=== PATIENT | female | born 1995 ===

== ENCOUNTER 2025-01-05 16:49 | Emergency (ER) | payer SELFPAY ==
[2025-01-05 17:08] VITALS: BP 135/93; PULSE 110; RESP 16; TEMP 36.8; O2SAT 100
--- NOTE | 2025-01-05 17:20 | ED_ITS ---
HPI - Psych General Chief Complaint: Psychiatric Symptoms Stated Complaint: anxious, paranoid Time Seen by Provider: 01/05/25 17:05 History of Present Illness HPI Narrative: 29 y/o F with a reported hx of schizophrenia, schizoaffective disorder, bipolar disorder, complex trauma presents to the ED for thoughts of not wanting to be in this world anymore. When asked if the patient is suicidal, she states I do not want to hurt myself. She denies HI. She is not forthcoming with information and states she does not want to speak with me about why she is hear, but rather the mental health workers. She denies hallucinations, drug use, ETOH abuse. She notes she was hospitalized at [facility] last week but does not elaborate as to why. She states she does not want to go back to [facility]. She is requesting a nicotine patch. Related Data Allergies Allergy/AdvReac Type Severity Reaction Status Date / Time Benzodiazepines AdvReac recovering Verified 01/05/25 17:12 addict lithium AdvReac hormone Verified 01/05/25 17:12 imbalance Review of Systems 2 Review of Systems: All systems reviewed & are unremarkable except as noted in HPI and below PMFSH Social History Social History Substance use type: former substance user Exam 2 Narrative: GENERAL: Well-appearing, well-nourished, and in no acute distress. HEAD: Normocephalic, atraumatic. EYES: EOMI. ENT: Nares clear, no rhinorrhea or epistaxis. Mucous membranes moist. NECK: Supple. CHEST: Clear to auscultation. No respiratory distress. HEART: Regular rate and rhythm. No murmur heard. Normal peripheral pulses. EXTREMITIES: Normal range of motion. No edema. SKIN: Warm, dry, no rash. NEURO: No focal deficits. Alert and oriented x3 PSYCH: Flat affect, anxious appearing, reserved. States ?I did not want to be in this world anymore?. But denies SI or HI when asked. Not responding to internal stimuli. Course Vital Signs Vital signs: Vital Signs Temperature 98.2 F 01/05/25 17:08 Pulse Rate 110 H 01/05/25 17:08 Respiratory Rate 16 01/05/25 17:08 Blood Pressure 135/93 H 01/05/25 17:08 Pulse Oximetry 100 01/05/25 17:08 Oxygen Delivery Room Air 01/05/25 17:08 Temperature 98.2 F 01/05/25 17:08 Pulse Rate 110 H 01/05/25 17:08 Respiratory Rate 16 01/05/25 17:08 Blood Pressure 135/93 H 01/05/25 17:08 Pulse Oximetry 100 01/05/25 17:08 Oxygen Delivery Room Air 01/05/25 17:08 MDM - Psych MDM Narrative Medical decision making narrative: 29-year-old female with a reported history of schizophrenia, schizoaffective disorder, bipolar disorder, complex trauma presents to the emergency department reporting ?I do not want to be in this world anymore?. When asked if she is suicidal, she states I do not want to hurt myself. Denies HI.Vitals with tachycardia 110. Patient is anxious appearing. Exam is notable for the above. Will obtain lab work and plan to consult [facility]. Pending remainder of workup when patient eloped out of the department. Pt denied SI and HI during my evaluation. Lab Data 01/05/25 17:13 01/05/25 17:13 Labs: Lab Results 01/05/25 Range/Units 17:13 WBC 4.3 L (4.5-10.0) K/mm3 RBC 4.09 L (4.2-5.4) M/mm3 Hgb 13.1 (12.0-15.0) g/dL Hct 38.6 (37.0-47.0) % MCV 94.4 (80-100) fl MCH 32.0 (26-34) pg MCHC 33.9 (32-36) g/dl RDW 12.9 (11.5-14.5) % Plt Count 274 (150-375) k/mm3 MPV 8.8 (7.4-10.4) fl Immature Gran % (Auto) 0.5 (0-0.5) % Neut % (Auto) 47.2 (45.5-73.1) % Lymph % (Auto) 35.7 (18.3-44.2) % Imperial % (Auto) 13.8 H (2.6-8.5) % Eos % (Auto) 2.1 (0-4.4) % Baso % (Auto) 0.7 (0.2-1.2) % Lymph # (Auto) 1.53 (0.9-3.2) K/mm3 Imperial # (Auto) 0.6 (0.1-0.6) K/mm3 Eos # (Auto) 0.1 (0-0.3) K/mm3 Baso # (Auto) 0.0 (0.0-0.1) K/mm3 Abs Immat Gran (auto) 0.02 (0.00-0.031) K/mm3 Absolute Neuts (auto) 2.0 (1.3-6.7) K/mm3 Absolute Nucleated RBC 0.000 (0.0-0.012) K/mm3 Nucleated RBC % 0.0 (0.0-0.2) % Sodium 137 (137-145) mmol/L Potassium 3.8 (3.4-5.0) mmol/L Chloride 105 (98-107) mmol/L Carbon Dioxide 25 (22-30) mmol/L Anion Gap 7 (4-12) mmol/L BUN 9 (7-17) mg/dL Creatinine 0.89 (0.7-1.0) mg/dL Estim Creat Clear Calc 70 ml/min Estimated GFR > 60 (59 - ) Glucose 91 (65-110) mg/dL Calcium 9.6 (8.4-10.2) mg/dL Total Bilirubin 0.5 (0.2-1.3) mg/dL AST 24 (14-36) U/L ALT 21 (6-35) U/L Alkaline Phosphatase 39 (38-126) U/L Total Protein 7.5 (6.3-8.2) g/dL Albumin 4.6 (3.5-5.1) g/dL TSH (Reflex) 3.350 (0.465-4.68) uIU/mL Ethyl Alcohol < 10 (<10) mg/dL Discharge Plan Discharge Clinical Impression: Encounter for psychiatric assessment Patient Disposition: Elopement After Seen by Prov Patient Language: Hungarian
[2025-01-05 17:22] LABS: Hematocrit 38.6 % (37.0-47.0); Hemoglobin 13.1 g/dL (12.0-15.0); Immature Granulocyte Percent A 0.5 % (0-0.5); Lymphocytes Absolute Auto 1.53 K/mm3 (0.9-3.2); Mean Corpuscular HGB Conc 33.9 g/dl (32-36); Mean Corpuscular Hemoglobin 32.0 pg (26-34); Mean Corpuscular Volume 94.4 fl (80-100); Nucleated Red Blood Cells Absolute Auto 0.000 K/mm3 (0.0-0.012); Nucleated Red Blood Cells Perc 0.0 % (0.0-0.2); Platelet Count Result 274 k/mm3 (150-375); Red Blood Count 4.09 M/mm3 (4.2-5.4); White Blood Count 4.3 K/mm3 (4.5-10.0)
[2025-01-05 17:32] LABS: Alanine Aminotransferase 21 U/L (6-35); Albumin Level 4.6 g/dL (3.5-5.1); Alkaline Phosphatase 39 U/L (38-126); Anion Gap 7 mmol/L (4-12); Aspartate Amino Transferase 24 U/L (14-36); Bilirubin,Total 0.5 mg/dL (0.2-1.3); Blood Urea Nitrogen 9 mg/dL (7-17); Calcium 9.6 mg/dL (8.4-10.2); Carbon Dioxide 25 mmol/L (22-30); Chloride 105 mmol/L (98-107); Estimated CRCL calculation 70 ml/min; Estimated Glomerular Filt Rate > 60; Glucose 91 mg/dL (65-110); Potassium 3.8 mmol/L (3.4-5.0); Sodium 137 mmol/L (137-145); Total Protein 7.5 g/dL (6.3-8.2)
[2025-01-05 18:03] LABS: Thyroid Stimulating Hormone Reflex 3.350 uIU/mL (0.465-4.68)
== END 2025-01-05 18:13 | disposition left against medical advice (07) ==
LOC: ANHED 18:00
PROVIDERS: Family Medicine; Emergency Provider Physician Assistant
DX: Z00.8 Encounter for other general examination (principal); F20.9 Schizophrenia, unspecified; F31.9 Bipolar disorder, unspecified
CPT/HCPCS: 36415; 80053; 82077; 84443; 85025; 99283